=== PATIENT | female | born 2000 | race Caucasian/White ===

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

== ENCOUNTER 2021-04-25 21:59 | Emergency (ER) | payer MEDICAID ==
[~2021-04-25] VITALS: Ht 152.4 cm; Wt 52.2 kg
[2021-04-25 22:23] VITALS: BP 123/85
[2021-04-25 23:07] VITALS: BP 123/85
== END 2021-04-25 23:05 | disposition home or self-care (01) ==
LOC: MED 21:59
DX: R07.9 Chest pain, unspecified (principal)
CPT/HCPCS: 71045; 93005; 99283; Q0092